=== PATIENT | female | born 2000 | race African-American/Black ===

== ENCOUNTER 2023-01-30 23:35 | Emergency (ER) | payer SELFPAY ==
[~2023-01-30] VITALS: Ht 154.9 cm; Wt 81.0 kg
[2023-01-31 00:15] VITALS: BP 127/72; PULSE 76; RESP 16; TEMP 98
== END 2023-01-31 01:58 | disposition home or self-care (01) ==
LOC: EMS 23:35
DX: S10.93XA Contusion of unspecified part of neck, initial encounter (principal); Z59.00 Homelessness unspecified; Y09 Assault by unspecified means; Y93.89 Activity, other specified; Y92.89 Other specified places as the place of occurrence of the external cause; Y99.8 Other external cause status
CPT/HCPCS: 99283